=== PATIENT | male | born 1950 | race American Indian/Alaskan Native ===

== ENCOUNTER 2016-07-29 19:51 | Emergency (ER) | payer OTHER ==
[2016-07-29 20:19] VITALS: RESP 16; O2SAT 99
--- NOTE | 2016-07-29 21:04 | C.PDOC ---
History Of Present Illness Pt states he metal object fell and hit him on the head while he was at work today. Time Seen by Provider: 07/29/16 20:36 Chief Complaint (Nursing): Trauma History Per: Patient Injury Occurred (Timing): Today @ (06:15pm) Patient States: Struck With Object Severity: Moderate Loss Of Consciousness: No Additional History Per: Prior Records Past Medical History Reviewed: Historical Data, Nursing Documentation, Vital Signs Vital Signs: Last Vital Signs Temp 98.8 F 07/29/16 20:16 Pulse 71 07/29/16 20:16 Resp 16 07/29/16 20:16 BP 148/76 07/29/16 20:16 Pulse Ox 99 07/29/16 21:03 - Medical History PMH: Benign Prostatic Hyperplasia, HTN Family History: States: Unknown Family Hx - Social History Hx Alcohol Use: No Hx Substance Use: No - Immunization History Hx Tetanus Toxoid Vaccination: No Hx Influenza Vaccination: No Hx Pneumococcal Vaccination: No Review Of Systems Except As Marked, All Systems Reviewed And Found Negative. Constitutional: Negative for: Fever, Weakness Eyes: Negative for: Pain, Vision Change Cardiovascular: Negative for: Chest Pain Respiratory: Negative for: Shortness of Breath Gastrointestinal: Negative for: Nausea, Vomiting, Abdominal Pain Musculoskeletal: Negative for: Neck Pain Skin: Negative for: Rash Neurological: Negative for: Weakness, Numbness, Incoordination, Change in Speech , Confusion, Seizures, Altered Mental Status, Dizziness Physical Exam - Physical Exam Appears: Non-toxic, No Acute Distress Skin: Normal Color, Warm, Dry, No Rash Head: Swelling (scalp hematoma), No Laceration Eye(s): bilateral: PERRL, EOMI Neck: Normal ROM, No Midline Cervical Tenderness, No Step Off Deformity, Supple Chest: Symmetrical, No Deformity Cardiovascular: Rhythm Regular Respiratory: Normal Breath Sounds, No Accessory Muscle Use Gastrointestinal/Abdominal: Soft, No Tenderness Extremity: Normal ROM, No Deformity Neurological/Psych: Oriented x3, Normal Speech, Normal Cognition, No Cerebellar Signs, Normal Motor, Normal Sensation ED Course And Treatment O2 Sat by Pulse Oximetry: 99 Pulse Ox Interpretation: Normal - Radiology Nexus Criteria: Negative - CT Scan/US CT head Other Rad Studies (CT/US): Read By Radiologist, Radiology Report Reviewed CT/US Interpretation: No acute intracranial abnormality. Reassessment Condition: Improved Disposition Counseled Patient/Family Regarding: Studies Performed, Diagnosis, Need For Followup - Disposition Referrals: Amy Branham MD [Staff Provider] - Disposition: HOME/ ROUTINE Disposition Time: 21:43 Condition: IMPROVED Additional Instructions: Follow up with your doctor. Return to the ER if you develop vomiting, weakness, numbness, confusion, worsening of symptoms or if you have any other concerns. Instructions: Head Injury (ED) - Clinical Impression Clinical Impression: Minor closed head injury
[2016-07-29 21:50] VITALS: BP 130/68; PULSE 80; TEMP 98
--- NOTE | 2016-07-30 08:23 | CT ---
PROCEDURE: CT HEAD WITHOUT CONTRAST. HISTORY: Head injury COMPARISON: None available. TECHNIQUE: Axial computed tomography images were obtained through the head/brain without intravenous contrast. Radiation dose: Total exam DLP = 939.83 mGy-cm. This CT exam was performed using one or more of the following dose reduction techniques: Automated exposure control, adjustment of the mA and/or kV according to patient size, and/or use of iterative reconstruction technique. FINDINGS: HEMORRHAGE: No intracranial hemorrhage. BRAIN: No mass effect or edema. No atrophy or chronic microvascular ischemic changes. VENTRICLES: Unremarkable. No hydrocephalus. CALVARIUM: No fracture. Right high parietal scalp contusion. Tiny dermal calcification or foreign body adjacent to the contused area. PARANASAL SINUSES: Right sphenoid retention cyst/polyp. MASTOID AIR CELLS: Unremarkable as visualized. No inflammatory changes. OTHER FINDINGS: None. IMPRESSION: No intracranial hemorrhage. High right parietal scalp contusion. Minor findings as above. Preliminary interpretation of this examination was reported by [facility] at 9:36 p.m. on 07/29/2016. There is concurrence of this report with the preliminary interpretation.
== END 2016-07-29 21:50 | disposition home or self-care (01) ==
LOC: C.ER 19:51
DX: S09.90XA Unspecified injury of head, initial encounter (principal); W20.8XXA Other cause of strike by thrown, projected or falling object, initial encounter; Y93.89 Activity, other specified; Y92.89 Other specified places as the place of occurrence of the external cause; Y99.0 Civilian activity done for income or pay

== ENCOUNTER 2018-02-16 07:40 | Day surgery (SDC) | payer OTHER ==
[2018-02-16 08:02] VITALS: BMI 29.6
[2018-02-16 08:18] VITALS: PULSE 75; RESP 20; TEMP 98.2; O2SAT 100
--- NOTE | 2018-02-16 08:57 | CP.SDSHP ---
Same Day Surgery H & P - History Proposed Procedure: COLONSCOPY Pre-Op Diagnosis: SEE NOTES - Previous Medical/Surgical History Cardiac: Hypertension Misc: Other Pain: 4.Moderate Pain - Allergies Allergies: Allergies No Known Allergies Allergy (Verified 02/16/18 08:00) - Physical Exam General Appearance: N Vital Signs: Vital Signs 02/16/18 08:04 Temperature 98.2 F Pulse Rate 75 Respiratory 20 Rate Blood Pressure 155/85 H O2 Sat by Pulse 100 Oximetry Mental Status: Alert & Oriented x3 Neuro: WNL Heart: Other Lungs: WNL GI: Other - {Optional Preform as Required} Breast: WNL Abdomen: Other Rectal: Other Integument: WNL : Other Ortho: WNL ENT: WNL - Impression Pt. Evaluated Today:Candidate for Anesthesia & Procedure: Yes - Date & Time Time: 08:56 Short Stay Discharge - Short Stay Discharge Admitting Diagnosis/Reason for Visit: HEMORRHAGE OF ANUS AND RECTUM Disposition: HOME/ ROUTINE Referrals: Amy Branham MD [Primary Care Provider] -
[2018-02-16] MEDS ORDERED: Lidocaine Hydrochloride 5 ML INJ ONE (08:59)
[2018-02-16] MEDS ORDERED: Propofol 10 mg/ml Inj (20 ML) ONE (08:59)
[2018-02-16] MEDS ORDERED: Belladonna-Phenobarbital PO ONE (09:45)
[2018-02-16 09:55] VITALS: BP 125/68
== END 2018-02-16 10:02 | disposition home or self-care (01) ==
LOC: C.ENDO 07:40
PROVIDERS: ATTEND Specialist
DX: K62.5 Hemorrhage of anus and rectum (principal); I10 Essential (primary) hypertension; R10.84 Generalized abdominal pain; K64.8 Other hemorrhoids; K57.30 Diverticulosis of large intestine without perforation or abscess without bleeding
CPT/HCPCS: 45380; 88305; J2704